=== PATIENT | female | born 1945 | race Caucasian/White ===

== ENCOUNTER 2018-08-24 17:54 | Inpatient (IN) | payer MEDICARE, OTHER ==
[~2018-08-24] VITALS: Ht 162.6 cm; Wt 53.2 kg
[~2018-08-24 17:54] MED LIST: ALBU90OI INH; AMIO200 PO; ASPI81CH PO; ATOR20 PO; Accuneb1.25 MG/3; BREO ELLIPTA 11 EACH IH; BREO ELLIPTA 11 EACH INH; BUME2 PO; BUPR150ER PO; BUPR150T2; Budeprion Sr150 MG PO; CARB100CH PO; CARV3.125 PO; CEFP500 PO; CEPH500 PO; CLOP75 PO; CRUTCH3 USE; CRUTCH4 USE; Cardizem CD 12120 MG PO; DIPH50; ENTRESTO 24 MG1 EACH PO; FLUT44OIA INH; Fergon240 M1 PO; HYDACE5 PO; IBUP600 PO; LAVAP17G PO; LEVFLO500 PO; LISI20 PO; MELO7.5 PO; MELOXICAM PO; META800 PO; Mobic15 MG PO; NEBI5 PO; OXYACE5T PO; Synthroid25 MCG PO; TIOT18 IH; TIOT18 INH; Wellbutrin PO; [UNRECOGNIZED DRUG - OTHER]
[2018-08-24 18:38] LABS: BASOPHILS ABSOLUTE AUTO 0.04 K/mm3 (0.00-0.23); BASOPHILS PERCENT AUTO 1 % (0-2); EOSINOPHILS ABSOLUTE AUTO 0.09 K/mm3 (0.00-0.68); EOSINOPHILS PERCENT AUTO 2 % (0-6); Hematocrit 37.3 % (33.0-51.0); Hemoglobin 11.5 g/dL (11.5-16.0); IMMATURE GRAN ABSOLUTE AUTO 0.01 K/mm3 (0.00-0.10); IMMATURE GRAN PERCENT AUTO 0 % (0-1); LYMPHOCYTES ABSOLUTE AUTO 0.91 K/mm3 (0.84-5.20); LYMPHOCYTES PERCENT AUTO 17 % (21-46); MONOCYTES ABSOLUTE AUTO 0.56 K/mm3 (0.16-1.47); MONOCYTES PERCENT AUTO 11 % (4-13); Mean Corpuscular HGB 29.2 pg (26.0-34.0); Mean Corpuscular HGB Conc 30.8 g/dL (31.5-36.5); Mean Corpuscular Volume 95 fL (80-100); Mean Platelet Volume 10.8 fL (9.1-12.4); NEUTROPHILS ABSOLUTE AUTO 3.68 K/mm3 (1.96-9.15); NEUTROPHILS PERCENT AUTO 70 % (41-73); Platelet Count 123 K/mm3 (150-400); RDW Coefficient Variation 12.7 % (11.7-14.2); RDW Standard Deviation 44.3 fL (35.1-46.3); Red Blood Cell Count 3.94 M/mm3 (3.80-5.20); White Blood Cell Count 5.29 K/mm3 (4.00-11.30)
[2018-08-24 18:54] LABS: Alanine Aminotransfer (ALT/SGP 62 U/L (12-78); Albumin, Blood 3.3 g/dL (3.4-5.0); Alk Phos 138 U/L (50-136); Anion Gap 4 mmol/L (6-16); Aspartate Aminotrans (AST/SGOT 44 U/L (12-37); Bilirubin, Total 0.4 mg/dL (0.1-1.0); Blood Urea Nitrogen 18 mg/dL (8-24); Bun/Creatinine Ratio 22.4 (12.0-20.0); CO2, Blood 32 mmol/L (21-32); Calcium, Blood 8.6 mg/dL (8.5-10.1); Chloride, Blood 103 mmol/L (98-108); Creatinine, Blood 0.81 mg/dL (0.40-1.00); Globulin, Blood 3.2 g/dL (2.2-4.0); Glomerular Filtration Rate >60 (60-); Glucose, Blood 96 mg/dL (70-99); Potassium, Blood 4.6 mmol/L (3.5-5.5); Sodium, Blood 139 mmol/L (136-145); Total Protein, Blood 6.5 g/dL (6.4-8.2); Troponin I <0.015 ng/mL (0.000-0.040)
[2018-08-24] MEDS ORDERED: METO25ER PO (20:33)
[2018-08-24] MEDS ORDERED: XARELTO15 MG PO (20:33)
[2018-08-24] MEDS ORDERED: DIGOX125 MCG PO (20:33)
[2018-08-24 20:43] LABS: Source, Urine Catheter
[2018-08-24 20:46] LABS: Bilirubin, Urine Neg (Neg); Blood, Urine 2+ (Neg); Glucose Qualitative, Urine Neg (Neg); Ketones, Urine Neg (Neg); Leukocyte Esterase, Urine Neg (Neg); Nitrite, Urine Neg (Neg); Protein, Urine 2+ (Neg); Urobilinogen, Urine NORM (Normal)
[2018-08-24 20:57] LABS: Appearance, Urine Clear (Clear); Bacteria Rare /hpf; Color, Urine Yellow (P-Yellow); Mucus Light ({null, 0-Heavy}); Squamous Epithelial Cells Few /hpf (Few); White Blood Cells, Urine Not Seen /hpf (0-5)
--- NOTE | 2018-08-24 22:30 | NUR ---
ASSUMED PT CARE PT IS ALERT AND ORIENTED X4; ABLE TO MAKE NEEDS KNOWN. CURRENTLY ON OXYGEN VIA NC AT 2L, WHICH IS BASELINE AT HOME WITH OXYGEN SATURATIONS MAINTAINING >90%. PT IS CURRENTLY IN AFIB WITH HR 130'S-150'S; SCHEDULED TOPROL ADMINSITERED. PT SALINE LOCKED WITH 20G IN RIGHT AC. PT WAS GIVEN LASIX IN ED WITH A TOTAL OF 1500CC OUT OF CASTILLO CATH, WHICH IS PATENT AND DRAINING CLEAR, YELLOW URINE. PT DENIES ANY PAIN AT THIS TIME. PT STATES SHE IS ALREADY FEELING BETTER AND NOT SOB.
[2018-08-25 03:54] LABS: Alanine Aminotransfer (ALT/SGP 57 U/L (12-78); Albumin, Blood 3.4 g/dL (3.4-5.0); Alk Phos 137 U/L (50-136); Anion Gap 6 mmol/L (6-16); Aspartate Aminotrans (AST/SGOT 31 U/L (12-37); Bilirubin, Total 0.4 mg/dL (0.1-1.0); Blood Urea Nitrogen 22 mg/dL (8-24); Bun/Creatinine Ratio 23.9 (12.0-20.0); CO2, Blood 36 mmol/L (21-32); Calcium, Blood 8.9 mg/dL (8.5-10.1); Chloride, Blood 99 mmol/L (98-108); Creatinine, Blood 0.92 mg/dL (0.40-1.00); Globulin, Blood 3.3 g/dL (2.2-4.0); Glomerular Filtration Rate >60 (60-); Glucose, Blood 144 mg/dL (70-99); Potassium, Blood 4.5 mmol/L (3.5-5.5); Sodium, Blood 141 mmol/L (136-145); Total Protein, Blood 6.7 g/dL (6.4-8.2)
[2018-08-25 04:02] LABS: Digoxin (Lanoxin) 0.37 ug/mL (0.80-2.00)
--- NOTE | 2018-08-25 06:56 | NUR ---
END OF SHIFT SUMMARY PT HAS REMAINED WEARING OXYGEN T/O NIGHT WITH O2 BEING TITRATED BETWEEN 2-3L WITH OXYGEN SATURATIONS MAINTAINING >90%. PT HAS REMAINED IN AFIB T/O NIGHT WITH HR DECREASING FROM 150'S TO 110'S. LUNG SOUNDS HAVE REMAINED DIMINISHED WITH OCCASIONAL WHEEZING NOTED. CASTILLO CATH IS PATENT AND DRAINING CLEAR, YELLOW URINE. BNP ELEVATED FROM 1300 TO 1700; DR. MYERS NOTIFIED; NO NEW ORDERS. PLACED REFERRAL FOR LEISURE STUDIES PROFESSOR D/T PT VOICING CONCERNS REGARDING DISCHARGE AND HOW HER IS BEDBOUND AND IT IS GETTING HARDER FOR HER TO CARE FOR HIM, WE SHE FEELS SHE IS GETTING TO THE POINT OF NEEDING CAREGIVERS FOR HERSELF. SHE STATES THAT CAREGIVERS COME OUT THREE TIMES A WEEK FROM [facility] TO HELP WITH HER , BUT NOT FOR HER. ALSO PLACED A REFERRAL FOR PALLIATIVE CARE D/T PT WANTING TO DISCUSS ADVANCED DIRECTIVE. PT APPEARS COMFORTABLE AT THIS TIME.
--- NOTE | 2018-08-25 11:42 | NUR ---
0700: CARE ASSUMED, PT SLEEPING, HR 90'S AFIB, VSS. SPO2 MID 90'S ON 2L/NC. 0800: CARE ASSUMED, PT SITTING UP IN BED, AT BREAKFAST WITHOUT DIFFICULTY. PT AWARE OF FLUID RESTRICTIONS, IS BEING CAREFUL OF INTAKE. VS REMAIN STABLE AT THIS TIME, PT DENIES SOB OR CHEST PAIN/PRESSURE. A&OX4, PLEASANT AND COOPERATIVE WITH CARE. 0945: SHOWER COMPLETED, PT BECAME SOB WITH EXERTION, RECOEVERED QUICKLY WITH OXYGEN 2L/NC AND REST. PT RECEIVING NEB FROM RT AT THIS TIME. HR 90'S - 110 WITH EXERTION, PT DENIES CHEST PAIN/PRESSURE. 1130: PT SITTING UP IN BED TALKING WITH VISITORS, DENIES SOB OR C/O. VS REMAIN STABLE, HR 80'S - LOW 100'S.
--- NOTE | 2018-08-25 14:29 | NUR ---
1300: PT SITTING UP IN BED, DENIES C/O OF SOB, CP, OR PALPITATIONS, HR 120'S AT THIS TIME. PT REPORTS SHE DID NOT SLEEP WELL LAST NIGHT AND WOULD LIKE TO TAKE A NAP, LIGHTS TURNED OFF, DOOR CLOSED. 1430: PT RESTING IN BED WATCHING TV, HR 106, PT DENIES C/O AT THIS TIME.
--- NOTE | 2018-08-25 14:57 | NUR ---
1455: REPEAT EKG COMPLETED PER ORDERS. PT RESTING IN BED READING, DENIES NEEDS OR C/O AT THIS TIME. HR 100-110 AFIB.
--- NOTE | 2018-08-25 17:10 | NUR ---
1600: PT CONTINUES TO REST IN BED, HR HAS SLOWED TO 90'S - 110, PT DENIES C/O, STATES SOB IS MINIMAL AND "MUCH BETTER." LS COARSE IN UPPER LOBES, CLEARS WITH COUGHING. PT STATES SHE IS UNABLE TO EXPECTORATE SPUTUM, DENIES NEEDS OR C/O AT THIS TIME.
--- NOTE | 2018-08-25 19:19 | NUR ---
1800: PT SITTING UP IN BED EATING DINNER, HR 100-110, A FIB, PT DENIES CHEST PAIN/PRESSURE. SPO2 93% ON 2L/NC, PT DENIES SOB AT THIS TIME. FRIEND AT BEDSIDE VISITNG WITH PT. 1840: IV TO R AC INFILTRATED, DC'D WITH TIP INTACT, PRESSURE DRESSING APPLIED. NEW IV INSERTED LEFT FA, FLUSHES WELL. VSS, HR REMAINS 90'S - 110, SPO2 LOW TO MID 90'S ON 2L/NC. REPORT GIVEN TO MEDICAL FLOOR NURSE, PT TRANSFERRED TO ROOM 360 VIA WC, BELONGINGS AND MEDICATIONS WITH PT.
[2018-08-26 04:33] LABS: BASOPHILS ABSOLUTE AUTO 0.02 K/mm3 (0.00-0.23); BASOPHILS PERCENT AUTO 0 % (0-2); EOSINOPHILS ABSOLUTE AUTO 0.01 K/mm3 (0.00-0.68); EOSINOPHILS PERCENT AUTO 0 % (0-6); Hematocrit 37.5 % (33.0-51.0); Hemoglobin 11.5 g/dL (11.5-16.0); IMMATURE GRAN ABSOLUTE AUTO 0.02 K/mm3 (0.00-0.10); IMMATURE GRAN PERCENT AUTO 0 % (0-1); LYMPHOCYTES ABSOLUTE AUTO 1.28 K/mm3 (0.84-5.20); LYMPHOCYTES PERCENT AUTO 15 % (21-46); MONOCYTES ABSOLUTE AUTO 1.05 K/mm3 (0.16-1.47); MONOCYTES PERCENT AUTO 13 % (4-13); Mean Corpuscular HGB 28.7 pg (26.0-34.0); Mean Corpuscular HGB Conc 30.7 g/dL (31.5-36.5); Mean Corpuscular Volume 94 fL (80-100); Mean Platelet Volume 10.9 fL (9.1-12.4); NEUTROPHILS ABSOLUTE AUTO 5.93 K/mm3 (1.96-9.15); NEUTROPHILS PERCENT AUTO 72 % (41-73); Platelet Count 175 K/mm3 (150-400); RDW Coefficient Variation 12.8 % (11.7-14.2); RDW Standard Deviation 44.7 fL (35.1-46.3); Red Blood Cell Count 4.01 M/mm3 (3.80-5.20); White Blood Cell Count 8.31 K/mm3 (4.00-11.30)
[2018-08-26 04:59] LABS: Bun/Creatinine Ratio 29.6 (12.0-20.0); Calcium, Blood 8.4 mg/dL (8.5-10.1); Creatinine, Blood 1.08 mg/dL (0.40-1.00); Potassium, Blood 4.1 mmol/L (3.5-5.5)
[2018-08-26 05:09] LABS: Thyroid Stimulating Hormone 0.57 uIU/mL (0.360-4.800)
--- NOTE | 2018-08-26 06:51 | NUR ---
pt continues on tele with a fib rate in 70s. denies acute distress. tolerating diet has 1200 ml fluid restriction. pts own med sent to pharmacy and were in bottle so she sent a second bottle and they ok pts own med. She has Spouse and has discharge needs possible home health needed. at baseline oxygen use. alert and talkative on phone during shift
--- NOTE | 2018-08-26 10:34 | NUR ---
partial echocardiogram completed
--- NOTE | 2018-08-26 13:41 | NUR ---
PT REPORTS "I JUST TOOK A DOSE OF MY SPIRIVA".
[2018-08-26] MEDS ORDERED: ALBU90OI INH (15:03)
[2018-08-26] MEDS ORDERED: GABA300 PO (15:03)
[2018-08-26] MEDS ORDERED: FURO20 PO (15:04)
[2018-08-26] MEDS ORDERED: PRED10 (15:05)
--- NOTE | 2018-08-26 15:40 | NUR ---
DISCHARGE NOTE DISCHARGED VIA W/C POV WITH FRIEND. ALL BELONGINGS AND HOME MEDICATIONS SENT HOME WITH PATIENT. IV AND CASTILLO CATHETER DISCONTINUED INTACT. PT VERBALIZED OF FOLLOWING UP WITH CARDIOPULMONARY REHAB AND HOME HEALTH. ALL REQUESTS FOR THESE FOLLOW UP DETAILS FAXED TO [facility] AND HOME HEALTH/CARE MANAGEMENT OFFICES BEFORE PATIENT LEFT HOSPITAL BY ASHLEY Lake RN
== END 2018-08-26 16:33 | disposition home health service (06) | DRG 292 ==
LOC: ER 17:54 → ICUW 20:55 → ICUE 22:16 → MEDS 22:25 → ER 22:25 → ICUE 08-25 17:18 → MEDS 08-25 18:16
PROVIDERS: Emergency Medicine; Family Medicine; Physician Assistant; ADMIT Internal Medicine
DX: I50.23 Acute on chronic systolic (congestive) heart failure (principal); J44.1 Chronic obstructive pulmonary disease with (acute) exacerbation; I48.0 Paroxysmal atrial fibrillation; E03.9 Hypothyroidism, unspecified; F32.9 Major depressive disorder, single episode, unspecified; I25.10 Atherosclerotic heart disease of native coronary artery without angina pectoris; I25.5 Ischemic cardiomyopathy; I25.2 Old myocardial infarction; Z95.5 Presence of coronary angioplasty implant and graft; Z88.5 Allergy status to narcotic agent; Z88.0 Allergy status to penicillin; Z88.2 Allergy status to sulfonamides; Z99.81 Dependence on supplemental oxygen; Z87.891 Personal history of nicotine dependence; Z79.01 Long term (current) use of anticoagulants; Z79.1 Long term (current) use of non-steroidal anti-inflammatories (NSAID); Z79.82 Long term (current) use of aspirin; Z79.899 Other long term (current) drug therapy
CPT/HCPCS: 36415; 51702; 71046; 80048; 80053; 80162; 81001; 83880; 84443; 84484; 85025; 93005; 93010; 93308; 93321; 94640; 94644; 94760; 96374; 99285-25; J1940

== ENCOUNTER 2019-05-26 17:29 | Inpatient (IN) | payer MEDICARE, OTHER ==
[~2019-05-26] VITALS: Ht 162.6 cm; Wt 49.3 kg
[~2019-05-26 17:29] MED LIST changes: -ASPI81CH PO; +Aspirin EC81 MG PO; +FURO20 PO; -Fergon240 M1 PO; +Ferrous Glucon324 M1 PO; +GABA300 PO; +LANOXIN125 MCG PO; +METO25ER PO; +PRED10; +XARELTO15 MG PO
[2019-05-26 17:56] LABS: Hematocrit 41.3 % (33.0-51.0); Hemoglobin 13.3 g/dL (11.5-16.0); Mean Corpuscular HGB 29.1 pg (26.0-34.0); Mean Corpuscular HGB Conc 32.2 g/dL (31.5-36.5); Mean Corpuscular Volume 90 fL (80-100); Mean Platelet Volume 10.8 fL (9.1-12.4); Platelet Count 201 K/mm3 (150-400); RDW Coefficient Variation 13.4 % (11.7-14.2); RDW Standard Deviation 45.1 fL (35.1-46.3); Red Blood Cell Count 4.57 M/mm3 (3.80-5.20); White Blood Cell Count 19.66 K/mm3 (4.00-11.30)
[2019-05-26] MEDS ORDERED: SPIR25 PO (18:01)
[2019-05-26] MEDS ORDERED: MELO7.5 PO (18:03)
[2019-05-26] MEDS ORDERED: ALBU2.5V5 INH (18:03)
[2019-05-26] MEDS ORDERED: Bumetanide2 MG PO ×2 (18:04→23:44)
[2019-05-26] MEDS ORDERED: BUPR150ER PO (18:04)
[2019-05-26 18:10] LABS: Alanine Aminotransfer (ALT/SGP 52 U/L (12-78); Albumin, Blood 2.6 g/dL (3.4-5.0); Albumin/Globulin Ratio 0.6 (0.8-1.8); Alk Phos 211 U/L (50-136); Anion Gap 7 mmol/L (6-16); Aspartate Aminotrans (AST/SGOT 59 U/L (12-37); Bilirubin, Total 0.6 mg/dL (0.1-1.0); Blood Urea Nitrogen 59 mg/dL (8-24); Bun/Creatinine Ratio 46.5 (12.0-20.0); CO2, Blood 30 mmol/L (21-32); Calcium, Blood 9.2 mg/dL (8.5-10.1); Chloride, Blood 94 mmol/L (98-108); Creatinine, Blood 1.27 mg/dL (0.40-1.00); Globulin, Blood 4.7 g/dL (2.2-4.0); Glomerular Filtration Rate 44 (60-); Glucose, Blood 155 mg/dL (70-99); Potassium, Blood 3.9 mmol/L (3.5-5.5); Sodium, Blood 131 mmol/L (136-145); Total Protein, Blood 7.3 g/dL (6.4-8.2); Troponin I <0.015 ng/mL (0.000-0.040)
[2019-05-26 18:13] LABS: BAND PERCENT MAN 12 % (0-8); BASOPHILS PERCENT MAN 0 % (0-2); EOSINOPHILS PERCENT MAN 0 % (0-6); LYMPHOCYTES ABSOLUTE MAN 0.58 K/mm3 (0.84-5.20); LYMPHOCYTES PERCENT MAN 3 % (21-46); MONOCYTES ABSOLUTE MAN 0.78 K/mm3 (0.16-1.47); MONOCYTES PERCENT MAN 4 % (4-13); NEUTROPHILS ABSOLUTE MAN 18.28 K/mm3 (1.96-9.15); SEG NEUTROPHILS PERCENT MAN 81 % (41-73); TOTAL CELLS COUNTED 100
[2019-05-26 19:23] LABS: Influenza A Negative (NEGATIVE); Influenza B Negative (NEGATIVE)
[2019-05-26] MEDS ORDERED: BUPROPION XL150 MG PO (19:24)
[2019-05-26] MEDS ORDERED: Spironolactone25 MG PO (19:25)
[2019-05-26] MEDS ORDERED: GABA300 PO (19:26)
[2019-05-27 05:13] LABS: BASOPHILS ABSOLUTE AUTO 0.06 K/mm3 (0.00-0.23); BASOPHILS PERCENT AUTO 0 % (0-2); EOSINOPHILS ABSOLUTE AUTO 0.06 K/mm3 (0.00-0.68); EOSINOPHILS PERCENT AUTO 0 % (0-6); Hematocrit 39.3 % (33.0-51.0); Hemoglobin 12.4 g/dL (11.5-16.0); IMMATURE GRAN ABSOLUTE AUTO 0.13 K/mm3 (0.00-0.10); IMMATURE GRAN PERCENT AUTO 1 % (0-1); LYMPHOCYTES ABSOLUTE AUTO 0.86 K/mm3 (0.84-5.20); LYMPHOCYTES PERCENT AUTO 5 % (21-46); MONOCYTES ABSOLUTE AUTO 0.81 K/mm3 (0.16-1.47); MONOCYTES PERCENT AUTO 5 % (4-13); Mean Corpuscular HGB 28.8 pg (26.0-34.0); Mean Corpuscular HGB Conc 31.6 g/dL (31.5-36.5); Mean Corpuscular Volume 91 fL (80-100); NEUTROPHILS ABSOLUTE AUTO 14.76 K/mm3 (1.96-9.15); NEUTROPHILS PERCENT AUTO 88 % (41-73); Platelet Count 187 K/mm3 (150-400); RDW Coefficient Variation 13.3 % (11.7-14.2); RDW Standard Deviation 45.7 fL (35.1-46.3); Red Blood Cell Count 4.31 M/mm3 (3.80-5.20); White Blood Cell Count 16.68 K/mm3 (4.00-11.30)
[2019-05-27 05:37] LABS: Bun/Creatinine Ratio 50.9 (12.0-20.0); Calcium, Blood 8.4 mg/dL (8.5-10.1); Creatinine, Blood 1.08 mg/dL (0.40-1.00); Potassium, Blood 3.4 mmol/L (3.5-5.5)
--- NOTE | 2019-05-27 06:11 | NUR ---
SHIFT SUMMARY PT WAS A NEW ADMIT DURING THE NIGHT, ARRIVING ON THE FLOOR AT 2234. SHE IS 73 Y/O, ADMITTED FOR PNA. PT IS A&O X 4, THOUGH OCCASIONALLY FORGETFUL, AND SBA IN THE ROOM. PT RECEIVED 1.5 L BOLUS OF NS AT 250 ML/HR. NO COMPLAINTS OF PAIN, NAUSEA OR ACUTE SOB, THOUGH DID REPORT AN OCCASIONAL, NONPRODUCTIVE COUGH. PT'S BP WAS IN THE 80S SYSTOLICALLY ON ADMISSION, THOUGH CAME UP TO HER BASELINE IN THE 90S SYSTOLICALLY AFTER HER BOLUS OF FLUIDS WERE STARTED. PER TELE MONITOR, HEART RATE IS AFIB IN THE 100S. PT IS ON CONTINUOUS O2 AT 2L PER HER HOME DOSE. ALL OTHER VITALS STABLE. NO OTHER ACUTE CHANGES IN PT CONDITIONS NOTED. WILL CONTINUE TO MONITOR AND TREAT PER EMAR UNTIL HAND OFF TO DAY SHIFT RN.
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
--- NOTE | 2019-05-27 18:04 | NUR ---
SHIFT SUMMARY. A&OX4, INDEPENDENT IN ROOM, NO SAFETY CONCERNS. PT DENIES SOB, N/V, AND PAIN. CONTINUES WITH 2L O2 NC, LUNGS CLEAR. GOOD PO INTAKE. NO NEW CHANGES OR CONCERNS.
[2019-05-28 05:09] LABS: BASOPHILS ABSOLUTE AUTO 0.05 K/mm3 (0.00-0.23); BASOPHILS PERCENT AUTO 1 % (0-2); EOSINOPHILS ABSOLUTE AUTO 0.12 K/mm3 (0.00-0.68); EOSINOPHILS PERCENT AUTO 1 % (0-6); Hematocrit 37.6 % (33.0-51.0); Hemoglobin 11.7 g/dL (11.5-16.0); IMMATURE GRAN ABSOLUTE AUTO 0.21 K/mm3 (0.00-0.10); IMMATURE GRAN PERCENT AUTO 2 % (0-1); LYMPHOCYTES ABSOLUTE AUTO 0.86 K/mm3 (0.84-5.20); LYMPHOCYTES PERCENT AUTO 8 % (21-46); MONOCYTES ABSOLUTE AUTO 0.67 K/mm3 (0.16-1.47); MONOCYTES PERCENT AUTO 6 % (4-13); Mean Corpuscular HGB 28.7 pg (26.0-34.0); Mean Corpuscular HGB Conc 31.1 g/dL (31.5-36.5); Mean Corpuscular Volume 92 fL (80-100); Mean Platelet Volume 10.7 fL (9.1-12.4); NEUTROPHILS ABSOLUTE AUTO 8.72 K/mm3 (1.96-9.15); NEUTROPHILS PERCENT AUTO 82 % (41-73); Platelet Count 177 K/mm3 (150-400); RDW Coefficient Variation 13.5 % (11.7-14.2); RDW Standard Deviation 45.8 fL (35.1-46.3); Red Blood Cell Count 4.08 M/mm3 (3.80-5.20); White Blood Cell Count 10.63 K/mm3 (4.00-11.30)
--- NOTE | 2019-05-28 06:06 | NUR ---
SHIFT SUMMARY A/O, ABLE TO MAKE NEEDS KNOWN. COOPERATIVE WITH CARE. CALLS AND ANSWERS QUESTIONS APPROPRIATELY. C/O PAIN/DISCOMFORT TO LOWER BACK; STATED FELT LIKE SPASMS, MEDICATED PER EMAR. STATED RELIEF. REMAINS ON 2L NC, BASELINE. OCCASIONAL COUGH. REMAINS INDEPENDENT IN ROOM. NO ACUTE CHANGES NOTED OVERNIGHT. VSS/AFEBRILE. BED IN LOWEST POSITION. CALL LIGHT AND BELONGINGS WITHIN REACH. WCTM. REPORT TO ONCOMING RN.
[2019-05-28 06:30] LABS: Bun/Creatinine Ratio 43.3 (12.0-20.0); Calcium, Blood 8.2 mg/dL (8.5-10.1); Creatinine, Blood 0.97 mg/dL (0.40-1.00); Potassium, Blood 3.9 mmol/L (3.5-5.5)
--- NOTE | 2019-05-28 18:16 | NUR ---
SHIFT SUMMARY. A&OX4, INDEPENDENT IN ROOM. PT CONTINUES WITH BASELINE O2 @ 2L NC, LUNGS CLEAR. DENIES SOB. PT DENIES PAIN, N/V. GOOD PO INTAKE. NO NEW CHANGES OR CONCERNS.
--- NOTE | 2019-05-28 18:18 | NUR ---
Yajaira visit with Antonieta who is known to me from her 's previous hospital admits. He last year, and Antonieta openly spoke about her grief with me. She has dear friends and neighbors who are there to help when needed. Antonieta responded well to gentle bereavement reimbursement counselor and prayer. I will remain available.
[2019-05-29 04:39] LABS: Hematocrit 38.5 % (33.0-51.0); Mean Corpuscular HGB 29.1 pg (26.0-34.0); Mean Corpuscular HGB Conc 31.2 g/dL (31.5-36.5); Mean Corpuscular Volume 93 fL (80-100); Mean Platelet Volume 10.2 fL (9.1-12.4); Platelet Count 185 K/mm3 (150-400); RDW Coefficient Variation 13.6 % (11.7-14.2); RDW Standard Deviation 47.2 fL (35.1-46.3); Red Blood Cell Count 4.12 M/mm3 (3.80-5.20); White Blood Cell Count 7.65 K/mm3 (4.00-11.30)
[2019-05-29 05:02] LABS: Anion Gap 3 mmol/L (6-16); Blood Urea Nitrogen 36 mg/dL (8-24); Bun/Creatinine Ratio 37.6 (12.0-20.0); CO2, Blood 32 mmol/L (21-32); Calcium, Blood 8.8 mg/dL (8.5-10.1); Chloride, Blood 104 mmol/L (98-108); Creatinine, Blood 0.96 mg/dL (0.40-1.00); Glomerular Filtration Rate >60 (60-); Glucose, Blood 91 mg/dL (70-99); Potassium, Blood 4.7 mmol/L (3.5-5.5); Sodium, Blood 139 mmol/L (136-145)
--- NOTE | 2019-05-29 05:10 | NUR ---
SHIFT SUMMARY: 73 Y/O FEMALE, INDEPENDENT IN THE ROOM, HAS BEEN PLEASANT AND COOPERATIVE ALL EVENING. SHE HAS DENIED ANY SOB, OR DIFFICULTY BREATHING THIS SHIFT. SATS HAVE REMAINED WNL ON 2 LITERS OF O2. SHE HAS SLEPT WELL THROUGHOUT THE NIGHT AFTER ANTIBOTICS WERE COMPLETED VIA IV. IV REMAINED PATENT AND SL. MEDS WERE GIVEN PER EMAR. SHE HAD NO ACUTE CHANGES THIS SHIFT. WILL REPORT TO DAY SHIFT RN.
--- NOTE | 2019-05-29 17:07 | NUR ---
SHIFT SUMMARY: PER PT, BREATHING IS IMPROVED SINCE ADMISSION. HER MAIN COMPLAINT IS OF LOWER BACK PAIN, RATED 5/10. TYLENOL, FLEXERIL, LIDOCAINE PATCH, HEATING PAD, AND AMBULATION IN HALLS ALL ATTEMPTED THIS SHIFT, WITH NO RELIEF FOUND. PT ENCOURAGED TO SIT UP IN CHAIR RATHER THAN STAY IN BED, AND SO FAR SHE HAS BEEN COMPLIANT FOR MEALS. OTHER THAN HER BACK PAIN, NO CHANGES TO REPORT. SPUTUM SAMPLE COLLECTED AND SENT TO LAB THIS EVENING. VITAL SIGNS STABLE.
--- NOTE | 2019-05-29 21:29 | NUR ---
BACK PAIN PT REPORTS THAT BACK PAIN HAS IMPROVED AND CURRENTLY RATES IT 10/21. KPAD REMAINS AT BEDSIDE, PT IS USING IT INTERMITTENTLY. LIDOCAINE PATCH REMOVED. 650 MG TYLENOL GIVEN PER PT REQUEST.
--- NOTE | 2019-05-30 04:15 | NUR ---
SHIFT SUMMARY PT REPORTS THAT HER BACK PAIN HAS IMPROVED FROM EARLIER IN THE DAY, ONLY REPORTING IT TO BE 3/10 THIS EVENING. MEDICATED W/ TYLENOL 650 MG X 1. PT HAD DIFFICULT TIME FALLING ASLEEP BUT APPEARED TO SLEEP WELL AFTER PRN MELATONIN. MILD SOB W/ EXERTION, DENIES SOB AT REST. PT REMAINED ON 2 L O2 THROUGHOUT THE NIGHT WITH O2 SATS IN THE MID 90'S. OTHERWISE NO ACUTE CHANGES. VSS. WILL CONTINUE TO MONITOR.
[2019-05-30] MEDS ORDERED: ASPERCREME1 EACH TOP (11:16)
[2019-05-30] MEDS ORDERED: GUAI600T33 PO (11:16)
[2019-05-30] MEDS ORDERED: ALBU3IS INH (11:17)
[2019-05-30] MEDS ORDERED: LEVOFLOXACIN750 MG PO (11:17)
[2019-05-30] MEDS ORDERED: FURO40 PO (11:33)
--- NOTE | 2019-05-30 13:45 | NUR ---
D/C HOME: PT ESCORTED OUT VIA W/C BY RECRUITING ASSOCIATE @ 9113. PT'S FRIEND HERE WITH HER HOME OXYGEN TO TRANSPORT PT HOME. DISCHARGE INSTRUCTIONS AND MEDICATIONS REVIEWED THOROUGHLY AND ALL QUESTIONS ANSWERED; PT VERBALIZED UNDERSTANDING OF ALL INSTRUCTIONS, FOLLOW UP APPOINTMENT, AND MEDICATION REGIMEN. TEE TELECOMMUNICATION LINES REPAIRER TO FAX ORDER FOR NEBULIZER TO [facility] AND PT INSTRUCTED TO CONTACT [facility] WHEN SHE GETS HOME TO HAVE NEBULIZER DELIVERED. NEW MEDICATIONS FAXED TO [facility] IN [place]. STABLE AT TIME OF DISCHARGE.
== END 2019-05-30 13:34 | disposition home or self-care (01) | DRG 871 ==
LOC: ER 17:29 → MEDS 21:55 → ENPENDDIS 05-30 11:21 → MEDS 05-30 13:34
PROVIDERS: Emergency Medicine; Internal Medicine; ADMIT Hospitalist
DX: A41.9 Sepsis, unspecified organism (principal); I50.43 Acute on chronic combined systolic (congestive) and diastolic (congestive) heart failure; J18.9 Pneumonia, unspecified organism; E87.1 Hypo-osmolality and hyponatremia; J96.11 Chronic respiratory failure with hypoxia; N17.9 Acute kidney failure, unspecified; J44.0 Chronic obstructive pulmonary disease with (acute) lower respiratory infection; I48.0 Paroxysmal atrial fibrillation; I95.9 Hypotension, unspecified; R65.20 Severe sepsis without septic shock; I25.10 Atherosclerotic heart disease of native coronary artery without angina pectoris; Z88.5 Allergy status to narcotic agent; Z88.0 Allergy status to penicillin; Z88.2 Allergy status to sulfonamides; Z99.81 Dependence on supplemental oxygen; I25.2 Old myocardial infarction; Z79.1 Long term (current) use of non-steroidal anti-inflammatories (NSAID); Z79.82 Long term (current) use of aspirin; Z79.51 Long term (current) use of inhaled steroids; Z79.899 Other long term (current) drug therapy
CPT/HCPCS: 36415; 71046; 80048; 80053; 83605; 83880; 84145; 84484; 85025; 85027; 87040; 87070; 87205; 87804; 93005; 93010; 94640; 94760; 96365; 96367; 99285-25; A9270; J0456; J0696; J1940; J7030; J7050

== ENCOUNTER 2020-07-23 11:45 | Day surgery (SDC) | payer MEDICARE, OTHER ==
[~2020-07-23 11:45] MED LIST changes: +ALBU2.5V5 INH; +ALBU3IS INH; +ASPERCREME1 EACH TOP; +Bumetanide2 MG PO; +FURO40 PO; +GUAI600T33 PO; +LEVOFLOXACIN750 MG PO; +Roxicodone5 MG PO; +SPIR25 PO; +Spironolactone25 MG PO
== END 2020-07-23 23:16 | disposition home or self-care (01) ==
LOC: WOUND 11:45
DX: I87.2 Venous insufficiency (chronic) (peripheral) (principal); I73.9 Peripheral vascular disease, unspecified; S91.301A Unspecified open wound, right foot, initial encounter; X58.XXXA Exposure to other specified factors, initial encounter; J44.9 Chronic obstructive pulmonary disease, unspecified; Z99.81 Dependence on supplemental oxygen; Z88.5 Allergy status to narcotic agent; Z88.0 Allergy status to penicillin; Z88.2 Allergy status to sulfonamides; Z87.891 Personal history of nicotine dependence; Z79.899 Other long term (current) drug therapy; Z79.01 Long term (current) use of anticoagulants
CPT/HCPCS: G0463

== ENCOUNTER 2020-07-30 00:18 | Day surgery (SDC) | payer MEDICARE, OTHER | END 2020-07-30 23:06 | disposition home or self-care (01) | LOC: WOUND 00:18 | DX: S91.311A Laceration without foreign body, right foot, initial encounter (principal); I96 Gangrene, not elsewhere classified; I87.2 Venous insufficiency (chronic) (peripheral); I48.91 Unspecified atrial fibrillation; I50.9 Heart failure, unspecified; I49.9 Cardiac arrhythmia, unspecified; I25.10 Atherosclerotic heart disease of native coronary artery without angina pectoris; J44.9 Chronic obstructive pulmonary disease, unspecified; Z79.01 Long term (current) use of anticoagulants; Z99.81 Dependence on supplemental oxygen; Z88.0 Allergy status to penicillin; Z88.2 Allergy status to sulfonamides; Z88.5 Allergy status to narcotic agent; Z79.82 Long term (current) use of aspirin; Z79.51 Long term (current) use of inhaled steroids; Z79.899 Other long term (current) drug therapy; Z79.1 Long term (current) use of non-steroidal anti-inflammatories (NSAID); W19.XXXA Unspecified fall, initial encounter; Y92.019 Unspecified place in single-family (private) house as the place of occurrence of the external cause ==

== ENCOUNTER 2020-08-05 06:38 | Day surgery (SDC) | payer MEDICARE, OTHER | END 2020-08-05 22:50 | disposition home or self-care (01) | LOC: WOUND 06:38 | DX: S91.301A Unspecified open wound, right foot, initial encounter (principal); L08.9 Local infection of the skin and subcutaneous tissue, unspecified; I96 Gangrene, not elsewhere classified; I87.2 Venous insufficiency (chronic) (peripheral); I48.91 Unspecified atrial fibrillation; J44.9 Chronic obstructive pulmonary disease, unspecified; I49.9 Cardiac arrhythmia, unspecified; I50.9 Heart failure, unspecified; I25.10 Atherosclerotic heart disease of native coronary artery without angina pectoris; Z99.81 Dependence on supplemental oxygen; Z79.01 Long term (current) use of anticoagulants; Z88.0 Allergy status to penicillin; Z88.2 Allergy status to sulfonamides; Z88.5 Allergy status to narcotic agent; Z79.82 Long term (current) use of aspirin; Z79.51 Long term (current) use of inhaled steroids; Z79.899 Other long term (current) drug therapy; Z79.1 Long term (current) use of non-steroidal anti-inflammatories (NSAID); X58.XXXA Exposure to other specified factors, initial encounter ==

== ENCOUNTER 2020-08-11 16:11 | Emergency (ER) | payer MEDICARE, OTHER ==
[~2020-08-11] VITALS: Ht 162.6 cm; Wt 54.0 kg
[2020-08-11 17:01] LABS: BASOPHILS ABSOLUTE AUTO 0.04 K/mm3 (0.00-0.23); BASOPHILS PERCENT AUTO 1 % (0-2); EOSINOPHILS ABSOLUTE AUTO 0.06 K/mm3 (0.00-0.68); EOSINOPHILS PERCENT AUTO 1 % (0-6); Hematocrit 27.6 % (33.0-51.0); Hemoglobin 7.7 g/dL (11.5-16.0); IMMATURE GRAN ABSOLUTE AUTO 0.03 K/mm3 (0.00-0.10); IMMATURE GRAN PERCENT AUTO 0 % (0-1); LYMPHOCYTES ABSOLUTE AUTO 0.56 K/mm3 (0.84-5.20); LYMPHOCYTES PERCENT AUTO 7 % (21-46); MONOCYTES ABSOLUTE AUTO 0.79 K/mm3 (0.16-1.47); MONOCYTES PERCENT AUTO 10 % (4-13); Mean Corpuscular HGB 23.7 pg (26.0-34.0); Mean Corpuscular HGB Conc 27.9 g/dL (31.5-36.5); Mean Corpuscular Volume 85 fL (80-100); Mean Platelet Volume 10.3 fL (9.1-12.4); NEUTROPHILS PERCENT AUTO 81 % (41-73); Platelet Count 268 K/mm3 (150-400); RDW Coefficient Variation 16.5 % (11.7-14.2); RDW Standard Deviation 51.6 fL (35.1-46.3); Red Blood Cell Count 3.25 M/mm3 (3.80-5.20); White Blood Cell Count 7.98 K/mm3 (4.00-11.30)
[2020-08-11 17:27] LABS: Alanine Aminotransfer (ALT/SGP 22 U/L (12-78); Albumin, Blood 2.4 g/dL (3.4-5.0); Albumin/Globulin Ratio 0.5 (0.8-1.8); Alk Phos 111 U/L (50-136); Anion Gap 2 mmol/L (6-16); Aspartate Aminotrans (AST/SGOT 21 U/L (12-37); Bilirubin, Total 0.4 mg/dL (0.1-1.0); Blood Urea Nitrogen 19 mg/dL (8-24); Bun/Creatinine Ratio 30.4 (12.0-20.0); CO2, Blood 35 mmol/L (21-32); Calcium, Blood 8.5 mg/dL (8.5-10.1); Chloride, Blood 99 mmol/L (98-108); Creatinine, Blood 0.62 mg/dL (0.40-1.00); Globulin, Blood 4.9 g/dL (2.2-4.0); Glomerular Filtration Rate >60 (60-); Glucose, Blood 89 mg/dL (70-99); Potassium, Blood 4.8 mmol/L (3.5-5.5); Sodium, Blood 136 mmol/L (136-145); Total Protein, Blood 7.3 g/dL (6.4-8.2); Troponin I <0.015 ng/mL (0.000-0.040)
[2020-08-11] MEDS ORDERED: Mobic15 MG PO (22:35)
[2020-08-11] MEDS ORDERED: ATEN50 PO (22:36)
[2020-08-11] MEDS ORDERED: [UNRECOGNIZED DRUG - CODE] (22:36)
[2020-08-11] MEDS ORDERED: XARELTO20 MG PO (22:37)
[2020-08-11 22:38] LABS: International Normalized Ratio 1.31; Prothrombin Time Results 13.8 Sec (9.7-11.5)
[2020-08-12] MEDS ORDERED: LEVFLO500 PO (02:03)
== END 2020-08-12 02:52 | disposition home or self-care (01) ==
LOC: ER 16:11
PROVIDERS: Nurse Practitioner Acute Care; Physician Assistant
DX: D64.9 Anemia, unspecified (principal); J44.0 Chronic obstructive pulmonary disease with (acute) lower respiratory infection; J18.9 Pneumonia, unspecified organism; I48.20 Chronic atrial fibrillation, unspecified; Z79.01 Long term (current) use of anticoagulants; Z79.82 Long term (current) use of aspirin; Z79.899 Other long term (current) drug therapy
CPT/HCPCS: 36415; 71046; 80053; 84484; 85025; 85610; 85730; 86850; 86900; 86901; 86923; 93005; 93010; C9113; J1956; J7030; P9016

== ENCOUNTER 2020-08-12 01:24 | Day surgery (SDC) | payer MEDICARE, OTHER ==
[~2020-08-12 01:24] MED LIST changes: +ATEN50 PO; +XARELTO20 MG PO; +[UNRECOGNIZED DRUG - CODE]
[2020-08-12] MEDS ORDERED: LEVFLO500 PO (02:03)
== END 2020-08-12 23:14 | disposition home or self-care (01) ==
LOC: WOUND
DX: S91.301A Unspecified open wound, right foot, initial encounter (principal); I48.91 Unspecified atrial fibrillation; J44.9 Chronic obstructive pulmonary disease, unspecified; I87.2 Venous insufficiency (chronic) (peripheral); I73.9 Peripheral vascular disease, unspecified; R77.0 Abnormality of albumin; D50.9 Iron deficiency anemia, unspecified; W19.XXXA Unspecified fall, initial encounter; Y92.009 Unspecified place in unspecified non-institutional (private) residence as the place of occurrence of the external cause; Z79.01 Long term (current) use of anticoagulants; Z99.81 Dependence on supplemental oxygen

== ENCOUNTER 2020-08-16 13:51 | Emergency (ER) | payer MEDICARE, OTHER ==
[~2020-08-16] VITALS: Ht 162.6 cm; Wt 54.4 kg
[2020-08-16] MEDS ORDERED: TRAM50 PO (19:10)
== END 2020-08-16 20:00 | disposition home or self-care (01) ==
LOC: ER 13:51
DX: S40.012A Contusion of left shoulder, initial encounter (principal); S09.90XA Unspecified injury of head, initial encounter; J44.9 Chronic obstructive pulmonary disease, unspecified; I10 Essential (primary) hypertension; I48.91 Unspecified atrial fibrillation; I25.2 Old myocardial infarction; F17.200 Nicotine dependence, unspecified, uncomplicated; Z88.0 Allergy status to penicillin; Z88.2 Allergy status to sulfonamides; Z88.5 Allergy status to narcotic agent; Z79.01 Long term (current) use of anticoagulants; Z79.82 Long term (current) use of aspirin; Z79.899 Other long term (current) drug therapy; Z95.0 Presence of cardiac pacemaker; W18.30XA Fall on same level, unspecified, initial encounter; Y92.009 Unspecified place in unspecified non-institutional (private) residence as the place of occurrence of the external cause
CPT/HCPCS: 70450; 73030; 96374; 99284-25

== ENCOUNTER 2020-08-18 00:46 | Day surgery (SDC) | payer MEDICARE, OTHER ==
[~2020-08-18 00:46] MED LIST changes: +TRAM50 PO
== END 2020-08-18 22:51 | disposition home or self-care (01) ==
LOC: WOUND 00:46
DX: I87.2 Venous insufficiency (chronic) (peripheral) (principal); I73.9 Peripheral vascular disease, unspecified; S91.301D Unspecified open wound, right foot, subsequent encounter; R77.0 Abnormality of albumin; J44.9 Chronic obstructive pulmonary disease, unspecified; I48.91 Unspecified atrial fibrillation; W19.XXXD Unspecified fall, subsequent encounter; Z99.81 Dependence on supplemental oxygen; Z79.01 Long term (current) use of anticoagulants

== ENCOUNTER 2020-08-26 00:27 | Day surgery (SDC) | payer MEDICARE, OTHER ==
[~2020-08-26 00:27] MED LIST changes: -ATEN50 PO; -Aspirin EC81 MG PO; -BREO ELLIPTA 11 EACH INH; -ENTRESTO 24 MG1 EACH PO; -LANOXIN125 MCG PO; -Spironolactone25 MG PO; -Synthroid25 MCG PO; -XARELTO20 MG PO; -[UNRECOGNIZED DRUG - CODE]
== END 2020-08-26 22:49 | disposition home or self-care (01) ==
LOC: WOUND 00:27
DX: L97.512 Non-pressure chronic ulcer of other part of right foot with fat layer exposed (principal); I48.91 Unspecified atrial fibrillation; J44.9 Chronic obstructive pulmonary disease, unspecified; I87.2 Venous insufficiency (chronic) (peripheral); I73.9 Peripheral vascular disease, unspecified; W19.XXXD Unspecified fall, subsequent encounter; Z79.01 Long term (current) use of anticoagulants; Z99.81 Dependence on supplemental oxygen
CPT/HCPCS: A9270

== ENCOUNTER 2020-09-02 00:44 | Day surgery (SDC) | payer MEDICARE, OTHER | END 2020-09-02 23:11 | disposition home or self-care (01) | LOC: WOUND 00:44 | DX: S91.301A Unspecified open wound, right foot, initial encounter (principal); L08.9 Local infection of the skin and subcutaneous tissue, unspecified; I96 Gangrene, not elsewhere classified; I87.2 Venous insufficiency (chronic) (peripheral); R77.0 Abnormality of albumin; I50.9 Heart failure, unspecified; I48.91 Unspecified atrial fibrillation; J44.9 Chronic obstructive pulmonary disease, unspecified; Z79.01 Long term (current) use of anticoagulants; Z99.81 Dependence on supplemental oxygen; Z88.0 Allergy status to penicillin; Z88.2 Allergy status to sulfonamides; Z88.5 Allergy status to narcotic agent; Z79.82 Long term (current) use of aspirin; Z79.51 Long term (current) use of inhaled steroids; Z79.899 Other long term (current) drug therapy; Z79.1 Long term (current) use of non-steroidal anti-inflammatories (NSAID); W19.XXXA Unspecified fall, initial encounter; Y93.9 Activity, unspecified; Y92.019 Unspecified place in single-family (private) house as the place of occurrence of the external cause | CPT/HCPCS: A9270 ==

== ENCOUNTER 2020-09-09 00:13 | Day surgery (SDC) | payer MEDICARE, OTHER | END 2020-09-09 22:38 | disposition home or self-care (01) | LOC: WOUND 00:13 | DX: S91.301D Unspecified open wound, right foot, subsequent encounter (principal); I87.2 Venous insufficiency (chronic) (peripheral); I73.9 Peripheral vascular disease, unspecified; I25.10 Atherosclerotic heart disease of native coronary artery without angina pectoris; I48.0 Paroxysmal atrial fibrillation; E03.9 Hypothyroidism, unspecified; J44.9 Chronic obstructive pulmonary disease, unspecified; R77.0 Abnormality of albumin; Z87.891 Personal history of nicotine dependence; Z99.81 Dependence on supplemental oxygen; Z79.01 Long term (current) use of anticoagulants | CPT/HCPCS: A9270 ==

== ENCOUNTER 2020-09-16 00:14 | Day surgery (SDC) | payer MEDICARE, OTHER | END 2020-09-16 23:45 | disposition home or self-care (01) | LOC: WOUND 00:14 | DX: S91.301D Unspecified open wound, right foot, subsequent encounter (principal); I87.2 Venous insufficiency (chronic) (peripheral); I73.9 Peripheral vascular disease, unspecified; I25.10 Atherosclerotic heart disease of native coronary artery without angina pectoris; J44.9 Chronic obstructive pulmonary disease, unspecified; I48.0 Paroxysmal atrial fibrillation; E03.9 Hypothyroidism, unspecified; R77.0 Abnormality of albumin; Z87.891 Personal history of nicotine dependence; Z99.81 Dependence on supplemental oxygen; Z79.01 Long term (current) use of anticoagulants | CPT/HCPCS: A9270 ==

== ENCOUNTER 2020-09-23 00:15 | Day surgery (SDC) | payer MEDICARE, OTHER | END 2020-09-23 23:13 | disposition home or self-care (01) | LOC: WOUND 00:15 | DX: S91.301D Unspecified open wound, right foot, subsequent encounter (principal); I87.2 Venous insufficiency (chronic) (peripheral); I73.9 Peripheral vascular disease, unspecified; I25.10 Atherosclerotic heart disease of native coronary artery without angina pectoris; J44.9 Chronic obstructive pulmonary disease, unspecified; I48.0 Paroxysmal atrial fibrillation; E03.9 Hypothyroidism, unspecified; R77.0 Abnormality of albumin; Z87.891 Personal history of nicotine dependence; Z99.81 Dependence on supplemental oxygen; Z79.01 Long term (current) use of anticoagulants | CPT/HCPCS: A9270 ==

== ENCOUNTER 2020-09-30 01:32 | Day surgery (SDC) | payer MEDICARE, OTHER | END 2020-09-30 23:03 | disposition home or self-care (01) | LOC: WOUND 01:32 | DX: S91.301D Unspecified open wound, right foot, subsequent encounter (principal); I87.2 Venous insufficiency (chronic) (peripheral); I73.9 Peripheral vascular disease, unspecified; R77.0 Abnormality of albumin; E03.9 Hypothyroidism, unspecified; I48.0 Paroxysmal atrial fibrillation; J44.9 Chronic obstructive pulmonary disease, unspecified; Z87.891 Personal history of nicotine dependence; X58.XXXD Exposure to other specified factors, subsequent encounter; Z79.01 Long term (current) use of anticoagulants | CPT/HCPCS: A9270 ==

== ENCOUNTER 2020-10-07 00:26 | Day surgery (SDC) | payer MEDICARE, OTHER | END 2020-10-07 22:49 | disposition home or self-care (01) | LOC: WOUND 00:26 | DX: S91.301A Unspecified open wound, right foot, initial encounter (principal); L08.9 Local infection of the skin and subcutaneous tissue, unspecified; I48.0 Paroxysmal atrial fibrillation; I25.10 Atherosclerotic heart disease of native coronary artery without angina pectoris; E03.9 Hypothyroidism, unspecified; J44.9 Chronic obstructive pulmonary disease, unspecified; I87.2 Venous insufficiency (chronic) (peripheral); I73.9 Peripheral vascular disease, unspecified; X58.XXXA Exposure to other specified factors, initial encounter; Z87.891 Personal history of nicotine dependence | CPT/HCPCS: A9270 ==

== ENCOUNTER 2020-10-14 00:07 | Day surgery (SDC) | payer MEDICARE, OTHER | END 2020-10-14 22:42 | disposition home or self-care (01) | LOC: WOUND 00:07 | DX: L97.512 Non-pressure chronic ulcer of other part of right foot with fat layer exposed (principal); S91.301A Unspecified open wound, right foot, initial encounter; I87.2 Venous insufficiency (chronic) (peripheral); I73.9 Peripheral vascular disease, unspecified; R77.0 Abnormality of albumin; J44.9 Chronic obstructive pulmonary disease, unspecified; I25.10 Atherosclerotic heart disease of native coronary artery without angina pectoris; I48.0 Paroxysmal atrial fibrillation; E03.9 Hypothyroidism, unspecified; W19.XXXA Unspecified fall, initial encounter; Y92.009 Unspecified place in unspecified non-institutional (private) residence as the place of occurrence of the external cause; Z87.891 Personal history of nicotine dependence; Z99.81 Dependence on supplemental oxygen; Z79.01 Long term (current) use of anticoagulants | CPT/HCPCS: A9270 ==

== ENCOUNTER 2020-10-20 00:25 | Day surgery (SDC) | payer MEDICARE, OTHER | END 2020-10-20 22:56 | disposition home or self-care (01) | LOC: WOUND 00:25 | DX: L97.512 Non-pressure chronic ulcer of other part of right foot with fat layer exposed (principal); S91.301A Unspecified open wound, right foot, initial encounter; I87.2 Venous insufficiency (chronic) (peripheral); I73.9 Peripheral vascular disease, unspecified; R77.0 Abnormality of albumin; J44.9 Chronic obstructive pulmonary disease, unspecified; I25.10 Atherosclerotic heart disease of native coronary artery without angina pectoris; I48.0 Paroxysmal atrial fibrillation; E03.9 Hypothyroidism, unspecified; W19.XXXA Unspecified fall, initial encounter; Y92.009 Unspecified place in unspecified non-institutional (private) residence as the place of occurrence of the external cause; Z87.891 Personal history of nicotine dependence; Z99.81 Dependence on supplemental oxygen; Z79.01 Long term (current) use of anticoagulants | CPT/HCPCS: A9270 ==

== ENCOUNTER 2020-10-28 00:41 | Day surgery (SDC) | payer MEDICARE, OTHER | END 2020-10-28 22:45 | disposition home or self-care (01) | LOC: WOUND 00:41 | DX: S91.301A Unspecified open wound, right foot, initial encounter (principal); I25.10 Atherosclerotic heart disease of native coronary artery without angina pectoris; I48.0 Paroxysmal atrial fibrillation; E03.9 Hypothyroidism, unspecified; I73.9 Peripheral vascular disease, unspecified; J44.9 Chronic obstructive pulmonary disease, unspecified; Z87.891 Personal history of nicotine dependence; Z79.01 Long term (current) use of anticoagulants; Z99.81 Dependence on supplemental oxygen | CPT/HCPCS: A9270 ==

== ENCOUNTER 2020-11-05 00:11 | Day surgery (SDC) | payer MEDICARE, OTHER | END 2020-11-05 23:36 | disposition home or self-care (01) | LOC: WOUND 00:11 | DX: S91.301A Unspecified open wound, right foot, initial encounter (principal); L97.512 Non-pressure chronic ulcer of other part of right foot with fat layer exposed; I87.2 Venous insufficiency (chronic) (peripheral); I73.9 Peripheral vascular disease, unspecified; R77.0 Abnormality of albumin; X58.XXXA Exposure to other specified factors, initial encounter | CPT/HCPCS: A9270 ==

== ENCOUNTER 2020-11-11 01:36 | Day surgery (SDC) | payer MEDICARE, OTHER | END 2020-11-11 23:03 | disposition home or self-care (01) | LOC: WOUND 01:36 | DX: S91.301A Unspecified open wound, right foot, initial encounter (principal); X58.XXXA Exposure to other specified factors, initial encounter; L97.512 Non-pressure chronic ulcer of other part of right foot with fat layer exposed; I87.2 Venous insufficiency (chronic) (peripheral); I73.9 Peripheral vascular disease, unspecified; R77.0 Abnormality of albumin; I25.10 Atherosclerotic heart disease of native coronary artery without angina pectoris; I48.0 Paroxysmal atrial fibrillation; E03.9 Hypothyroidism, unspecified; J44.9 Chronic obstructive pulmonary disease, unspecified; Z87.891 Personal history of nicotine dependence | CPT/HCPCS: A9270 ==

== ENCOUNTER 2020-11-17 00:53 | Day surgery (SDC) | payer MEDICARE, OTHER | END 2020-11-17 22:57 | disposition home or self-care (01) | LOC: WOUND 00:53 | DX: L97.512 Non-pressure chronic ulcer of other part of right foot with fat layer exposed (principal); I87.2 Venous insufficiency (chronic) (peripheral); I73.9 Peripheral vascular disease, unspecified; S91.301A Unspecified open wound, right foot, initial encounter; R77.0 Abnormality of albumin; X58.XXXA Exposure to other specified factors, initial encounter; I25.10 Atherosclerotic heart disease of native coronary artery without angina pectoris; J44.9 Chronic obstructive pulmonary disease, unspecified; I48.0 Paroxysmal atrial fibrillation; Z87.891 Personal history of nicotine dependence; Z99.81 Dependence on supplemental oxygen | CPT/HCPCS: A9270 ==

== ENCOUNTER 2020-11-22 15:47 | Inpatient (IN) | payer MEDICARE, OTHER ==
[~2020-11-22] VITALS: Ht 162.6 cm; Wt 67.8 kg
[2020-11-22 16:39] LABS: BASOPHILS ABSOLUTE AUTO 0.04 K/mm3 (0.00-0.23); BASOPHILS PERCENT AUTO 1 % (0-2); EOSINOPHILS ABSOLUTE AUTO 0.04 K/mm3 (0.00-0.68); EOSINOPHILS PERCENT AUTO 1 % (0-6); Hematocrit 38.9 % (33.0-51.0); Hemoglobin 10.6 g/dL (11.5-16.0); IMMATURE GRAN ABSOLUTE AUTO 0.02 K/mm3 (0.00-0.10); IMMATURE GRAN PERCENT AUTO 1 % (0-1); LYMPHOCYTES ABSOLUTE AUTO 0.57 K/mm3 (0.84-5.20); LYMPHOCYTES PERCENT AUTO 13 % (21-46); MONOCYTES PERCENT AUTO 11 % (4-13); Mean Corpuscular HGB 24.9 pg (26.0-34.0); Mean Corpuscular HGB Conc 27.2 g/dL (31.5-36.5); Mean Corpuscular Volume 92 fL (80-100); Mean Platelet Volume 11.2 fL (9.1-12.4); NEUTROPHILS ABSOLUTE AUTO 3.26 K/mm3 (1.96-9.15); NEUTROPHILS PERCENT AUTO 74 % (41-73); Platelet Count 180 K/mm3 (150-400); RDW Coefficient Variation 16.8 % (11.7-14.2); RDW Standard Deviation 56.6 fL (35.1-46.3); Red Blood Cell Count 4.25 M/mm3 (3.80-5.20); White Blood Cell Count 4.43 K/mm3 (4.00-11.30)
[2020-11-22 17:11] LABS: Alanine Aminotransfer (ALT/SGP 10 U/L (12-78); Albumin, Blood 2.8 g/dL (3.4-5.0); Albumin/Globulin Ratio 0.7 (0.8-1.8); Alk Phos 92 U/L (50-136); Anion Gap 0 mmol/L (6-16); Aspartate Aminotrans (AST/SGOT 12 U/L (12-37); Bilirubin, Total 0.5 mg/dL (0.1-1.0); Blood Urea Nitrogen 24 mg/dL (8-24); Bun/Creatinine Ratio 33.8 (12.0-20.0); CO2, Blood 38 mmol/L (21-32); Calcium, Blood 8.6 mg/dL (8.5-10.1); Chloride, Blood 105 mmol/L (98-108); Creatinine, Blood 0.71 mg/dL (0.40-1.00); Globulin, Blood 4.2 g/dL (2.2-4.0); Glomerular Filtration Rate >60 (60-); Glucose, Blood 90 mg/dL (70-99); Potassium, Blood 4.4 mmol/L (3.5-5.5); Sodium, Blood 143 mmol/L (136-145); Troponin I 0.039 ng/mL (0.000-0.040)
[2020-11-22] MEDS ORDERED: ALBU90OI INH (17:35)
[2020-11-22] MEDS ORDERED: BREO ELLIPTA 11 EAC1 INH (17:36)
[2020-11-22] MEDS ORDERED: TIOT18 INH (17:37)
[2020-11-22] MEDS ORDERED: PARO10 PO (17:38)
[2020-11-22] MEDS ORDERED: ATEN50 PO (17:38)
[2020-11-22] MEDS ORDERED: Aspirin EC81 MG PO (17:39)
[2020-11-22] MEDS ORDERED: Synthroid25 MCG PO (18:08)
[2020-11-22] MEDS ORDERED: ATOR20 PO (18:08)
[2020-11-22] MEDS ORDERED: ENTRESTO 24 MG1 EACH PO (18:08)
[2020-11-22] MEDS ORDERED: Spironolactone25 MG PO (18:09)
[2020-11-22] MEDS ORDERED: Mobic15 MG PO (18:09)
[2020-11-22] MEDS ORDERED: BUPR150ER PO (18:09)
[2020-11-22] MEDS ORDERED: LANOXIN125 MCG PO (18:09)
[2020-11-22] MEDS ORDERED: FEROSUL325 M1 PO (18:10)
[2020-11-22] MEDS ORDERED: XARELTO20 MG PO (18:10)
[2020-11-22] MEDS ORDERED: FURO40 PO (18:12)
[2020-11-22] MEDS ORDERED: TRAMADOL-ACETAMINOPH PO (18:14)
[2020-11-23 03:30] LABS: BASOPHILS ABSOLUTE AUTO 0.03 K/mm3 (0.00-0.23); BASOPHILS PERCENT AUTO 1 % (0-2); EOSINOPHILS ABSOLUTE AUTO 0.08 K/mm3 (0.00-0.68); EOSINOPHILS PERCENT AUTO 2 % (0-6); Hematocrit 38.6 % (33.0-51.0); Hemoglobin 10.4 g/dL (11.5-16.0); IMMATURE GRAN ABSOLUTE AUTO 0.02 K/mm3 (0.00-0.10); IMMATURE GRAN PERCENT AUTO 0 % (0-1); LYMPHOCYTES ABSOLUTE AUTO 0.61 K/mm3 (0.84-5.20); LYMPHOCYTES PERCENT AUTO 13 % (21-46); MONOCYTES ABSOLUTE AUTO 0.54 K/mm3 (0.16-1.47); MONOCYTES PERCENT AUTO 11 % (4-13); Mean Corpuscular HGB 24.9 pg (26.0-34.0); Mean Corpuscular HGB Conc 26.9 g/dL (31.5-36.5); Mean Corpuscular Volume 92 fL (80-100); NEUTROPHILS ABSOLUTE AUTO 3.47 K/mm3 (1.96-9.15); NEUTROPHILS PERCENT AUTO 73 % (41-73); Platelet Count 174 K/mm3 (150-400); RDW Coefficient Variation 16.8 % (11.7-14.2); RDW Standard Deviation 57.1 fL (35.1-46.3); Red Blood Cell Count 4.18 M/mm3 (3.80-5.20); White Blood Cell Count 4.75 K/mm3 (4.00-11.30)
[2020-11-23 03:50] LABS: Anion Gap -1 mmol/L (6-16); Blood Urea Nitrogen 23 mg/dL (8-24); Bun/Creatinine Ratio 29.3 (12.0-20.0); CO2, Blood 41 mmol/L (21-32); Calcium, Blood 8.4 mg/dL (8.5-10.1); Chloride, Blood 104 mmol/L (98-108); Creatinine, Blood 0.79 mg/dL (0.40-1.00); Glomerular Filtration Rate >60 (60-); Glucose, Blood 116 mg/dL (70-99); Potassium, Blood 4.4 mmol/L (3.5-5.5); Sodium, Blood 144 mmol/L (136-145)
--- NOTE | 2020-11-23 05:44 | NUR ---
shift summary pt rested well through night. alert and oriented, able to make needs known. cooperative with plan of care. sats >90% on 2-4lnc (2lnc at baseline). tele afib/some pacing. purewick in place d/t pt dyspnea with activity, and diuretics being given. pt has old l shoulder injury in which she required some pain medication - see emar. no bm. vss. call light within reach, bed in lowest position. will continue to monitor.
[2020-11-23 12:03] LABS: Free Thyroxine 0.94 ng/dL (0.70-1.60); Troponin I 0.046 ng/mL (0.000-0.040)
[2020-11-23 12:06] LABS: Thyroid Stimulating Hormone 3.41 uIU/mL (0.360-4.800)
--- NOTE | 2020-11-23 18:47 | NUR ---
SHIFT SUMMARY PT HAS BEEN SLEEPING ON AND OFF TODAY. A NEW PUREWICK WAS PLACED AT APPROXIMATELY 1100 THIS MORNING. THE PT HAS HAD SIGNIFICANT URINE OUTPUT AND THE EDEMA IS IMPROVING. PT REPORTS HER BOTTOM BEING SORE. PT HAS BEEN REPOSITIONED THROUGHOUT THE DAY AND A PREVENTATIVE MEPILEX HAS BEEN PLACED ON HER COCCYX IT HAS BEGUN TO BE RED. PT HAS HAD INCREASED O2 NEEDS, AT HOME HER BASELINE IS 2L. PT HAS NEEDED 6L THROUGHOUT THE DAY, RN ETHEL ATTEMPTED TO WEAN THE PT DOWN TO 4L WHICH WAS SUBSTANTIAL UNTIL SHE BEGAN TO EAT OR SLEEP. VS OTHERWISE STABLE. RIGHT FOOT WOUND DRESSING IS C/D/I. PT RESTING AT THIS TIME.
[2020-11-24 04:05] LABS: BASOPHILS ABSOLUTE AUTO 0.02 K/mm3 (0.00-0.23); BASOPHILS PERCENT AUTO 0 % (0-2); EOSINOPHILS ABSOLUTE AUTO 0.08 K/mm3 (0.00-0.68); EOSINOPHILS PERCENT AUTO 2 % (0-6); Hemoglobin 10.2 g/dL (11.5-16.0); IMMATURE GRAN ABSOLUTE AUTO 0.01 K/mm3 (0.00-0.10); IMMATURE GRAN PERCENT AUTO 0 % (0-1); LYMPHOCYTES ABSOLUTE AUTO 0.71 K/mm3 (0.84-5.20); LYMPHOCYTES PERCENT AUTO 15 % (21-46); MONOCYTES PERCENT AUTO 15 % (4-13); Mean Corpuscular HGB 24.6 pg (26.0-34.0); Mean Corpuscular HGB Conc 26.8 g/dL (31.5-36.5); Mean Corpuscular Volume 92 fL (80-100); Mean Platelet Volume 11.3 fL (9.1-12.4); NEUTROPHILS ABSOLUTE AUTO 3.09 K/mm3 (1.96-9.15); NEUTROPHILS PERCENT AUTO 67 % (41-73); Platelet Count 168 K/mm3 (150-400); RDW Coefficient Variation 16.6 % (11.7-14.2); RDW Standard Deviation 56.3 fL (35.1-46.3); Red Blood Cell Count 4.15 M/mm3 (3.80-5.20); White Blood Cell Count 4.61 K/mm3 (4.00-11.30)
[2020-11-24 04:22] LABS: Albumin, Blood 2.5 g/dL (3.4-5.0); Anion Gap 1 mmol/L (6-16); Blood Urea Nitrogen 24 mg/dL (8-24); CO2, Blood 43 mmol/L (21-32); Calcium, Blood 8.5 mg/dL (8.5-10.1); Chloride, Blood 102 mmol/L (98-108); Creatinine, Blood 0.83 mg/dL (0.40-1.00); Glomerular Filtration Rate >60 (60-); Glucose, Blood 79 mg/dL (70-99); Magnesium, Blood 1.7 mg/dL (1.6-2.4); Phosphorus, Blood 3.6 mg/dL (2.5-4.9); Potassium, Blood 3.9 mmol/L (3.5-5.5); Sodium, Blood 146 mmol/L (136-145)
--- NOTE | 2020-11-24 05:19 | NUR ---
shift summary pt rested well through night. alert and oriented - able to make needs known and is cooperative with plan of care. sats range from 93-95% on 6lnc, but when weaned down to 4lnc, o2 would drop down to 80%'s. tele afib with pacing.no c/o chest pain. purewick in place - 1l uop, no bm. no c/o pain through night. mepilex in place on sacrum for preventative measures. vss. call light within reach, bed in lowest position. will continue to monitor.
--- NOTE | 2020-11-24 14:16 | NUR ---
Pt gave consent to provide care on 11/24/2020 from 1230 to 1730.
--- NOTE | 2020-11-24 19:00 | NUR ---
SHIFT SUMMARY PT ALERT AND ORIENTED X 4. HR STABLE. BP STABLE. MAP ABOVE 65. PT REFUSED REPOSITIONING AT TIMES. OXYGEN SATURATION MAINTAINED ABOVE 94% ON 6 L OF OXYGEN VIA NC. UNABLE TO TITRATE OXYGEN DOWN T/O SHIFT. WOUND CARE PROVIDED PER WOUND CARE CLINIC ORDERS. PICTURES IN CHART OF WOUND. PUREWICK CHANGED DURING SHIFT. WOUND CARE ORDERS AT BEDSIDE. DRESSING CHAGNED 3X WEEK. PUREWICK DRAINING W/SUCTION. DEPENDS IN PLACE. MEPLEX ON COCCYX FOR PREVENTION. WILL CONTINUE TO MONITOR UNTIL REPORT GIVEN TO NIGHTSHIFT RN.
--- NOTE | 2020-11-25 04:13 | NUR ---
NECK BAND MAKER SUMMARY PT IS AXO X4. O2 SATS >89% ON 3-5L NC. PUREWICK IN PLACE W MODERATE URINE PRODUCTION. PT HAS GENERALIZED PAIN WHICH IS RELIEVED W PAIN MEDICATION PER EMAR. LEGS HAVE REMAINED ELEVATED ALL SHIFT. TELE HAS SHOWN AFIB W OCCASSIONAL PACED RHYTHYM. PT HAS DENIED ANY CP OR NAUSEA THIS SHIFT. VSS, WCTM.
[2020-11-25 04:49] LABS: Hematocrit 37.1 % (33.0-51.0)
[2020-11-25 05:17] LABS: Magnesium, Blood 1.6 mg/dL (1.6-2.4)
[2020-11-25 05:18] LABS: Albumin, Blood 2.5 g/dL (3.4-5.0); Blood Urea Nitrogen 22 mg/dL (8-24); Bun/Creatinine Ratio 27.4 (12.0-20.0); Calcium, Blood 7.9 mg/dL (8.5-10.1); Chloride, Blood 97 mmol/L (98-108); Glomerular Filtration Rate >60 (60-); Glucose, Blood 88 mg/dL (70-99); Phosphorus, Blood 3.2 mg/dL (2.5-4.9); Potassium, Blood 3.4 mmol/L (3.5-5.5); Sodium, Blood 143 mmol/L (136-145)
[2020-11-25 05:38] LABS: Anion Gap Unable to Calculate mmol/L (6-16)
[2020-11-25 05:39] LABS: CO2, Blood >45 mmol/L (21-32)
[2020-11-25 06:45] LABS: PCO2 Arterial 75.7 mmHg (35-45); PO2 Arterial 57.6 mmHg (80-100); pH Blood Arterial 7.41 (7.35-7.45)
--- NOTE | 2020-11-25 17:32 | NUR ---
SHIFT SUMMARY; A/A/OX4 THROUGHOUT SHIFT. 4L 02 VIA NC, VSS, REPOSITIONS SELF IN BED NEEDED. WOUND CARE PROVIDED TO RIGHT FOOT BY ELIGIO DORSEY. CHANGED TO PCU STATUS TODAY BY HOSPITALIST DUE TO INCREASED CO2 AND CURRENT O2 DEMANDS. BIPAP ORDERED AND STARTED BY RT. PT WORE FOR APPROX 5 MINS AND STATED SHE CANNOT TOLERATE IT AND WONT WEAR IT. DR. MILLS UPDATED. NO ACUTE CHANGES ON SHIFT. WILL CONTINUE TO TREAT AND MONITOR UNTIL CHANGE OF SHIFT.
--- NOTE | 2020-11-25 18:20 | NUR ---
PURWICK CHANGED, NO SIGNS OF SKIN BREAKDOWN.
--- NOTE | 2020-11-26 03:56 | NUR ---
SUPERINTENDENT DRILLING AND PRODUCTION SUMMARY PT REQUIRING 3-5L OF 02 TO MAINTAIN O2 SAT >88%. PT REFUSES TO WEAR THE BIPAP. PURWICK REPLACED AGAIN THIS SHIFT AND PT HAS HAD GOOD URINE OUTPUT. VSS. PT DOES APPEAR MORE ALERT THIS SHIFT COMPARED TO PREVIOUS NIGHT. NO NEW S/S, WCTM.
[2020-11-26 05:01] LABS: Hematocrit 35.2 % (33.0-51.0); Hemoglobin 9.7 g/dL (11.5-16.0)
[2020-11-26 05:49] LABS: Blood Urea Nitrogen 22 mg/dL (8-24); Bun/Creatinine Ratio 27.5 (12.0-20.0); Chloride, Blood 96 mmol/L (98-108); Glomerular Filtration Rate >60 (60-); Glucose, Blood 89 mg/dL (70-99); Sodium, Blood 141 mmol/L (136-145)
[2020-11-26 06:10] LABS: Anion Gap Unable to Calculate mmol/L (6-16)
[2020-11-26 06:11] LABS: CO2, Blood >45 mmol/L (21-32)
[2020-11-26 06:40] LABS: Base Excess Venous 26.1 mmol/L; Bicarbonate Venous 47.4 mmol/L (24.0-30.0); PCO2 Venous 73.2 mmHg (38-42); PO2 Venous 68.2 mmHg (38-42); pH Blood Venous 7.44 (7.34-7.37)
--- NOTE | 2020-11-26 17:44 | NUR ---
SHIFT SUMMARY; A/A/OX4 DURING SHIFT. 4L O2 VIA NC. WORKED WITH OT/PT TODAY DURING SHIFT. DESATURATION T0 LOW 80'S WITH EXERTION WITH THERAPY. RECOVERED TO LOW 90'S WITH REST. HR REMAINS IN AFIB IN 70'S. BLE 1+. LASIX PER ORDERS. L/S DIM T/O. PERIWICK REMOVED BED CANO NEEDED. MEPILEX WITH CALCIUM ALGINATE TO WOUND ON TOP OF RIGHT FOOT. SCATTERED BRUSING T/O LEFT LEG WITH REDNESS TO LOWER LEFT LEG. MEPLIX IN PLACE TO COCCYX. ASSISTED WITH REPOSITIONING THROUGHOUT DAY. NO ACUTE CHANGES DURING SHIFT. WILL CONTINUE TO TREAT AND MONITOR UNTIL CHANGE OF SHIFT.
--- NOTE | 2020-11-26 17:54 | NUR ---
SHIFT SUMMARY; ASSUMED CARE AT 0700, REPORT FROM WILLIAN. A/Shelly/OX4 DURING SHIFT, HR AFIB 90-140 DURING SHIFT. MEDICATED PER ORDERS WITH IV LABATOLOL NEEDED. DENIES SOB OR CHEST PAIN. TAKEN TO [facility]ENTER IN AFTERNOON FOR [facility] WITH CARDIOVERSION. UNABLE TO CONVERT AFTER 2 SHOCKS. RETURNS TO UNIT AFTER AMNIO BOLUS AND DRIP STARTED PER ORDERS AT 33.3ML/HR. INDEPENDANT IN ROOM AND WITH REPOSITIONING, WILL CONTINUE TO MONITOR AND TREAT UNTIL CHANGE OF SHIFT.
[2020-11-27 05:36] LABS: Albumin, Blood 2.4 g/dL (3.4-5.0); Blood Urea Nitrogen 22 mg/dL (8-24); Bun/Creatinine Ratio 28.5 (12.0-20.0); Calcium, Blood 8.1 mg/dL (8.5-10.1); Chloride, Blood 95 mmol/L (98-108); Creatinine, Blood 0.77 mg/dL (0.40-1.00); Glomerular Filtration Rate >60 (60-); Glucose, Blood 92 mg/dL (70-99); Phosphorus, Blood 3.1 mg/dL (2.5-4.9); Potassium, Blood 3.9 mmol/L (3.5-5.5); Sodium, Blood 141 mmol/L (136-145)
--- NOTE | 2020-11-27 05:44 | NUR ---
shift summary ptrested well thorugh night. alert and oriented, able to make needs known. tele afib with pacing - 60's. sats >90% on 4lnc - still refusign to wear bipap even with critically high co2. frequently voiding - using bedpan, adequate uop. no bm. mepilex over sacrum for preventative measures. c/o pain in neck - see emar. vss. call light within reach, bed in lowest position. will continue to monitor.
[2020-11-27 06:15] LABS: Anion Gap Unable to Calculate mmol/L (6-16)
[2020-11-27 06:17] LABS: CO2, Blood >45 mmol/L (21-32)
--- NOTE | 2020-11-27 08:00 | NUR ---
PT LAYING IN BED AWAKE A/OX3, COOPERATIVE WITH CARE, FOLLOWS COMMANDS WELL, STATES HER NECK HURTS BADLY, THAT IT CRACKED WHEN MOVED LAST NIGHT AND HAS HURT SINCE, SHE IS SITUATED WITH TOWELS AND PILLOWS KEEPING HER WHERE SHE WANTS TO BE, LUNGS ARE DIM T/O, RESP EVEN AND UNLABORED, NO COUGH NOTED, HRIRR, TELE IN PLACE RUNNING AFIB WITH PACED BEATS, TRACE EDEMA NOTED TO B/L LE, IV SITE IS CLEAR AND PATENT, BTX4, ABD FLAT SOFT NONTENDER, WOUND TO RIGHT FOOT, DRESSING IN PLACE, MAEW, WEAK, DANTE, CALL LIGHT IN REACH.
--- NOTE | 2020-11-27 14:30 | NUR ---
PT GOING TO RADIOLOGY FOR XRAY OF NECK VIA WHEELCHAIR.
--- NOTE | 2020-11-27 16:41 | NUR ---
PT RESTING QUIETLY IN BED WITH EYES CLOSED, THE LAST FEW TIMES THIS NURSE CHECKED IN ON HER SHE WAS SLEEPING, CALL LIGHT IN REACH.
--- NOTE | 2020-11-27 17:41 | NUR ---
PT SITTING UP EATING DINNER. REPORTS NECK PAIN AT 4, LIDOCANE PATCH PLACED, AND TRAMADOL GIVEN. DOING OK, NO FURTHER CHANGES. CALL LIGHT IN REACH.
--- NOTE | 2020-11-27 20:15 | NUR ---
PT REPORTS PAIN TO HER NECK - REPOSITIONED PILLOW FOR COMFORT. PT ALSO REPORTS GENERALIZED PAIN - 3/10 - NO REQUEST FOR PAIN MEDICATION. PT HAS A MEPILEX ON HER COCCYX, AND A DRESSING WITH MEPILEX COVERING TO HER RIGHT FOOT. PT REPORTS SHE FOLLOWS WITH THE WOUND CLINIC, WEEKLY. PT DENIES ANY CHEST PAIN, OR NAUSEA. PT HAS A CONTINUOUS BIOX ON. SATS WNL ON 6L O2 WITH HUMIDIFIED OXYGEN. FLUIDS AT BEDSIDE. CALL LIGHT WITHIN REACH. BED IN LOW POSITION.
[2020-11-28 04:21] LABS: BASOPHILS ABSOLUTE AUTO 0.02 K/mm3 (0.00-0.23); BASOPHILS PERCENT AUTO 1 % (0-2); EOSINOPHILS ABSOLUTE AUTO 0.08 K/mm3 (0.00-0.68); EOSINOPHILS PERCENT AUTO 2 % (0-6); Hematocrit 34.3 % (33.0-51.0); Hemoglobin 9.5 g/dL (11.5-16.0); IMMATURE GRAN ABSOLUTE AUTO 0.01 K/mm3 (0.00-0.10); IMMATURE GRAN PERCENT AUTO 0 % (0-1); LYMPHOCYTES ABSOLUTE AUTO 0.71 K/mm3 (0.84-5.20); LYMPHOCYTES PERCENT AUTO 18 % (21-46); MONOCYTES ABSOLUTE AUTO 0.55 K/mm3 (0.16-1.47); MONOCYTES PERCENT AUTO 14 % (4-13); Mean Corpuscular HGB Conc 27.7 g/dL (31.5-36.5); Mean Corpuscular Volume 90 fL (80-100); Mean Platelet Volume 10.4 fL (9.1-12.4); NEUTROPHILS ABSOLUTE AUTO 2.65 K/mm3 (1.96-9.15); NEUTROPHILS PERCENT AUTO 66 % (41-73); Platelet Count 136 K/mm3 (150-400); RDW Coefficient Variation 16.1 % (11.7-14.2); RDW Standard Deviation 53.9 fL (35.1-46.3); White Blood Cell Count 4.02 K/mm3 (4.00-11.30)
[2020-11-28 04:37] LABS: Albumin, Blood 2.4 g/dL (3.4-5.0); Blood Urea Nitrogen 26 mg/dL (8-24); Bun/Creatinine Ratio 30.7 (12.0-20.0); Calcium, Blood 8.1 mg/dL (8.5-10.1); Chloride, Blood 93 mmol/L (98-108); Creatinine, Blood 0.85 mg/dL (0.40-1.00); Glomerular Filtration Rate >60 (60-); Glucose, Blood 87 mg/dL (70-99); Phosphorus, Blood 3.2 mg/dL (2.5-4.9); Potassium, Blood 3.9 mmol/L (3.5-5.5); Sodium, Blood 140 mmol/L (136-145)
[2020-11-28 04:41] LABS: Anion Gap Unable to Calculate mmol/L (6-16); CO2, Blood >45 mmol/L (21-32)
[2020-11-28 05:18] LABS: PCO2 Arterial 84.3 mmHg (35-45); PO2 Arterial 84.9 mmHg (80-100)
--- NOTE | 2020-11-28 06:18 | NUR ---
SHIFT SUMMARY - CONTINUOUS BIOX ON - PT HAS DESATED TO LOW TO MID 80'S X2 TONIGHT WITH SLEEP - PT RECOVERS O2 LEVEL TO LOW TO MID 90'S WITHIN ONE MINUTE ONCE AWAKENED. PT HAD A CRITICAL CO2 THIS AM (ALONG WITH PAST 2 DAYS) - OXYGEN TURNED DOWN TO 5L AFTER THESE RESULTS THIS AM - CURRENTLY SATS WNL. NO ACUTE CHANGES THROUGHOUT THE NIGHT. CALL LIGHT WITHIN REACH. BED IN LOW POSITION. LEGS ELEVATED ON PILLOWS.
--- NOTE | 2020-11-28 15:53 | NUR ---
Initial Pal Care visit to Antonieta, who is well known to me as a previous pulmonary rehab pt years ago. She is sitting up in chair currently. She appears thin/frail and prfoundly fatigued. She states she can't olayinka bipap, feels claustraphobic. She has a close friend living in her home and helping her. Another family member comes to help her with a shower and she states, "my daughter will be coming once I tell her about hospice care". Pt had discussed hospice with earlier and asked additional questions about cost, how it works. We discussed benefits, services and choosing to be home, receiving supportive care and s/s mangement instead of repeated hospitalizations. Pt is clear that she would prefer to reamain in her home once discharged. We reviewed her code status also. Pt is clear that she does not want CPR or intubation if she experiences cardiopulmonary failure for any reason. Pt states she thought she already had this conversation with someone earlier in the week. I assured her I would report her wishes to and note our conversation in her EMR. I gave report on my visit to and RN. VO obtained and entered for DNR status. Time spent visiting and listening to pt after advanced care planning conversation. Pt showed me a picture of her who approx 2-3 years ago. He was on hosice. Antonieta felt he received good care and that they were both supported. Pt's was also a previous cardiopulmonary rehab patient. Pt appeared to enjoy reminiscing and talking about her . Plan for pal care f/u for continued support and s/s management. Pt reports chronic neck and upper back pain due to arthritis. She appeared calm, despite baseline significant dyspnea with conversation. She did not appear in distress during our visit and was glad for the visit and conversation.
--- NOTE | 2020-11-28 18:18 | NUR ---
SHIFT SUMMARY PT WAS ABLE TO WORK WITH PHYSICAL THERAPY TODAY AND HAS BEEN TRANSFERRING WELL WITH 1 PERSON AND THE GAIT BELT. PT CHANGED HER CODE STATUS TODAY TO DNR SHE HAS NOT HAD SIGNIFICANT IMPROVEMENT, PT WOULD LIKE TO GO HOME ON HOSPICE AND THIS HAS BEEN COMMUNICATED WITH THE PHYSICIAN AND PALLIATIVE CARE. PT REMAINS ALERT AND ORIENTED. PT HAS BEEN SLIGHTLY HYPOTENSIVE BUT IS ASYMPTOMATIC AND MAP REMAINS ABOVE 65. PT IS CURRENTLY SITTING IN HER CHAIR WATCHING TV.
--- NOTE | 2020-11-29 07:40 | NUR ---
SHIFT SUMMARY PATIENT PLEASENT AND COOPERATIVE THROUGHOUT THE NIGHT. PATIENT APPEARED TO BE ABLE TO NAP ON AND OFF LAST NIGHT. PATIENT ON 6L VIA HIGH FLOW NASAL CANNULA, CONTINUOUS BIOX IN PLACE. PATIENT REPOSITIONED FREQUENTY FOR COMFORT, PAIN MEDICATION GIVEN PER EMAR AND BLOOD PRESSURE TOLERATED. PATIENT CURRENTLY APPEARS TO BE ASLEEP, RESPIRATIONS EVEN AND UNLABORED. REPORT GIVEN TO ONCOMING RN.
--- NOTE | 2020-11-29 18:35 | NUR ---
SHIFT SUMMARY PT HAS BEEN RESTING ON AND OFF TODAY AND HAS HAD AN EASIER TIME GETTING MORE COMFORTABLE. PT HAS BEEN UP TO THE CHAIR MULTIPLE TIMES TODAY AND HAS BEEN ABLE TO TRANSFER WITH 1 PERSON, WALKER AND GAIT BELT. PT EXPRESSES SOME FEAR AROUND TRANSFERRING AND WORRIES ABOUT FALLING, THE WALKER AND GAIT BELT HELP TO GIVE HER SOME COMFORT WHILE MOVING. VS HAVE BEEN STABLE AND PT HAS REMAINED ON 5-6L O2 VIA NC. PT IS RESTING IN BED AT THIS TIME
--- NOTE | 2020-11-30 06:27 | NUR ---
SHIFT SUMMARY PATIENT PLEASENT THROUGHOUT THE SHIFT. PATIENT REPOSITIONED FREQUENTLY FOR COMFORT. PATIENT MEDICATED FOR PAIN PER EMAR AND PROVIDED WITH WARM BLANKETS FOR COMFORT WELL. PATIENT DECLINED THE OFFER FOR A HEATING PAD. PATIENT APPEARED TO NAP ON AND OFF THROUGHOUT THE NIGHT. VITAL SIGNS CHARTED. WILL CONTINUE CURRENT PLAN OF CARE AND REPORT TO ONCOMING RN.
[2020-11-30 09:46] LABS: Albumin, Blood 2.4 g/dL (3.4-5.0); Blood Urea Nitrogen 23 mg/dL (8-24); Bun/Creatinine Ratio 35.1 (12.0-20.0); Calcium, Blood 8.2 mg/dL (8.5-10.1); Chloride, Blood 93 mmol/L (98-108); Creatinine, Blood 0.66 mg/dL (0.40-1.00); Glomerular Filtration Rate >60 (60-); Glucose, Blood 129 mg/dL (70-99); Phosphorus, Blood 2.4 mg/dL (2.5-4.9); Potassium, Blood 3.6 mmol/L (3.5-5.5); Sodium, Blood 140 mmol/L (136-145)
[2020-11-30 09:50] LABS: Anion Gap Unable to Calculate mmol/L (6-16); CO2, Blood >45 mmol/L (21-32)
--- NOTE | 2020-11-30 10:56 | NUR ---
PT ALERT AND ORIENTED X4. ON 6 L O2 VIA HIGH FLOW NASAL CANNULA SATING ABOVE 94%. TELE SHOWING AFIB PACED WITH HR 60-70'S. DENIES CHEST PAIN. LIDOCAINE PATCH APPLIED TO RIGHT UPPER NECK/SHOULDER. USING BEDPAN. Q2 TURNING AND NEEDED. PT STATES SHE IS FEELING WEAK. DENIES PAIN AT THIS TIME. VITAL SIGNS STABLE. LOWER LEGS/FEET EDEMA. RIGHT FOOT WOUND, CLEANED AND DRESSING CHANGED PER ORDERS. EATING WELL AND CALLING APPRIOPRIATLY. BED REMAINED IN LOW LOCKED POSITION. TRANSFERRED TO MEDICAL FLOOR VIA BED WITH BELONGINGS.
--- NOTE | 2020-11-30 12:55 | NUR ---
PT RECIEVED TO ROOM AOX4 AND COOPERATIVE OF CARE. PT SETTLED INTO ROOM AND CALL LIGHT WITHIN REACH. PT CURRENTLY ON 6L. PT ABLE TO BE UP FOR LUNCH NO DISTRESS NOTED AND DID WELL A TWO PERSON BACK TO BED. WILL CONTINUE TO MONITOR.
--- NOTE | 2020-11-30 18:23 | NUR ---
PT AOX4 AND COOPERATIVE OF CARE. PT HAS BEEN TOLERENT OF BEING UP FOR HER MEALS. PT CONTINUES 6L O2 DOES GET A BET SOB WITH TRANSFER, BUT RECOVERS. PT CALLS APPROPRIATELY AND HAS CALL LIGHT WITHIN REACH. WILL CONTINUE TO MONITOR.
--- NOTE | 2020-12-01 05:57 | NUR ---
SHIFT SUMMARY AOX3. FORGETFUL @TIMES. SLOW TO RESPOND. FOLLOWS DIRECTIONS. VSS. TELE AFIB & PACED @75. REPORTS 02/20 PAIN ALLOVER, MOSTLY NECK/BACK, MEDICATED 1X c TRAMADOL & PLACED KPAD FOR HEAT. REPORTS SHE'S "ALWAYS" SOB, SPO2 @97% ON 6L HF NC, TITRATED TO 4L O2 THIS AM. BASELINE @2L O2. CRACKLES HEARD IN BASES. +3 PITTING EDEMA BLE, ELEVATED WHILE IN BED. DRESSING ON RLE R/T ULCER, C/D/I DURING ASSESSMENT. PLAN TO DC HOME ON HOSPICE TODAY. CALL LIGHT IN REACH & PT ABLE TO MAKE NEEDS KNOWN.
[2020-12-01] MEDS ORDERED: LIDO700A20 TOP (12:13)
[2020-12-01] MEDS ORDERED: TRAM50 PO (12:14)
[2020-12-01] MEDS ORDERED: MELATONIN5 M1 PO (12:14)
--- NOTE | 2020-12-01 12:43 | NUR ---
Brief supportive Pal Care visit to pt. She was sitting in chair, starting to eat her lunch on my second attempt to visit. Pt is smiling and looks much less dyspnic than on my last visit three days ago. Pt grateful to be going home with her friend today. Her daughter is arriving from out of state on . Pt denies needs at this time. Hospice has been arranged by CM and pt will receive s/s management and support for end stage pulmonary disease thru hospice.
--- NOTE | 2020-12-01 13:28 | NUR ---
Discharge Summary A/Ox4, pleasant and cooperative. Dressing to R foot changed per order. Up with 1P assist to bsc. Denies pain. Lidocaine patch to R neck/shoulder. Discharging home with hospice. Reviewed discharge paperwork with patient, no questions at this time. Copy given. IV removed, WNL. Notified caregiver Natalia [phone] of patient's discharge, she will have someone pick patient up. Meds faxed to pharmacy, tramadol was called in. Personal portable O2 tank, personal belongings, and additional O2 tank that was delivered for patient will all be sent home. Will be escorted by staff via w/c.
--- NOTE | 2020-12-01 18:35 | NUR ---
Spiritual care note: Antonieta was appreciaitve of prayer and spiritual encouragement. she feels well-loved and supported by a network of friends. One has recently moved in to help. Antonieta thought she had been hospitalized for 11 days (She's been here 8). she reports hope for continued healing and was in process of d/c home.
== END 2020-12-01 13:53 | disposition hospice, home (50) | DRG 280 ==
LOC: ER 15:47 → PCU 15:48 → MEDS 11-30 10:41
PROVIDERS: Emergency Medicine; Family Medicine; Internal Medicine; Nurse Practitioner Acute Care; ADMIT Internal Medicine
DX: I11.0 Hypertensive heart disease with heart failure (principal); J96.21 Acute and chronic respiratory failure with hypoxia; I21.A1 Myocardial infarction type 2; J96.12 Chronic respiratory failure with hypercapnia; E44.0 Moderate protein-calorie malnutrition; I50.33 Acute on chronic diastolic (congestive) heart failure; I48.0 Paroxysmal atrial fibrillation; J44.9 Chronic obstructive pulmonary disease, unspecified; E87.6 Hypokalemia; Z68.27 Body mass index [BMI] 27.0-27.9, adult; I25.10 Atherosclerotic heart disease of native coronary artery without angina pectoris; M50.30 Other cervical disc degeneration, unspecified cervical region; G47.00 Insomnia, unspecified; E03.9 Hypothyroidism, unspecified; Z99.81 Dependence on supplemental oxygen; I25.2 Old myocardial infarction; Z88.0 Allergy status to penicillin; Z88.2 Allergy status to sulfonamides; Z88.5 Allergy status to narcotic agent; Z79.899 Other long term (current) drug therapy; Z79.82 Long term (current) use of aspirin; Z87.01 Personal history of pneumonia (recurrent); Z90.89 Acquired absence of other organs; Z90.710 Acquired absence of both cervix and uterus; Z98.890 Other specified postprocedural states; Z95.0 Presence of cardiac pacemaker; Z95.5 Presence of coronary angioplasty implant and graft; Z87.891 Personal history of nicotine dependence; Z79.01 Long term (current) use of anticoagulants
CPT/HCPCS: 36415; 36600; 71045; 72040; 80048; 80053; 80069; 82803; 83735; 83880; 84145; 84439; 84443; 84484; 85014; 85018; 85025; 93005; 93010; 93306; 94640; 94660; 94760; 94762; 96374; 96376; 97110; 97162; 97166; 97530; 99285-25; A9270; G0378; J1940

== ENCOUNTER → 2021-02-04 | Outpatient (CLI) | payer MEDICARE, OTHER ==
[~2021-02-04] MED LIST changes: +ATEN50 PO; +Aspirin EC81 MG PO; +BREO ELLIPTA 11 EAC1 INH; +ENTRESTO 24 MG1 EACH PO; +FEROSUL325 M1 PO; +LANOXIN125 MCG PO; +LIDO700A20 TOP; +MELATONIN5 M1 PO; +PARO10 PO; +Spironolactone25 MG PO; +Synthroid25 MCG PO; +TRAMADOL-ACETAMINOPH PO; +XARELTO20 MG PO
[2021-02-04 17:36] LABS: Appearance, Urine Hazy (Clear); Bilirubin, Urine Neg (Neg); Blood, Urine 4+ (Neg); Color, Urine Yellow (P-Yellow); Glucose Qualitative, Urine Neg (Neg); Ketones, Urine 1+ (Neg); Leukocyte Esterase, Urine 3+ (Neg); Nitrite, Urine Pos (Neg); Protein, Urine 3+ (Neg); Specific Gravity, Urine 1.015 (1.003-1.022); Urobilinogen, Urine 1+ (Normal)
[2021-02-04 17:58] LABS: Bacteria Many /hpf; Red Blood Cells, Urine 25-50 /hpf (0-2); Squamous Epithelial Cells Few /hpf (Few); White Blood Cells, Urine 50-100 /hpf (0-5)
[2021-02-04 17:59] LABS: Amorphous Light (0-Heavy); Triple Phosphate Crystals Few /hpf
== END | disposition home or self-care (01) ==
LOC: LAB SHORT 11:30
PROVIDERS: Nurse Practitioner
DX: N39.0 Urinary tract infection, site not specified (principal)
CPT/HCPCS: 81001; 87086